=== PATIENT | male | born 1960 | race African-American/Black ===

== ENCOUNTER 2017-01-17 11:32 | Emergency (ER) | payer MEDICARE, MEDICAID ==
[~2017-01-17] VITALS: Ht 188 cm; Wt 67.0 kg
[~2017-01-17 11:32] MED LIST: CHLO50TA6 PO; DIVA250T8 OR
[2017-01-17 11:34] VITALS: BP 107/78; PULSE 85; RESP 16; TEMP 98.2; O2SAT 97
--- NOTE | 2017-01-17 11:39 | PD ---
Physical Exam Time Seen by Provider: 11:37 Narrative 66 y/o male presents for evaluation of weight loss, blurred vision, diarrhea, generalized feelings of unwell. Difficult historian. VSS Seen at triage desk. Awaiting bed placement. Data Data Last Documented VS Vital Signs Date Time Temp Pulse Resp B/P Pulse Ox O2 Delivery O2 Flow Rate FiO2 01/17/17 11:34 98.2 85 16 107/78 97 MDM Medical Record Reviewed: Yes Supervised Visit with [place]: Gómez Pimentel January 17, 2017 11:39
[2017-01-17 12:35] LABS: AUTOMATED NEUTROPHIL # 3.8 TH/MM3 (1.8-7.7); BASOPHIL % 0.3 % (0.0-2.0); BLOOD, URINE NEG (NEG); COMMENT (UR) CULT NOT INDICATED; CULTURE IF INDICATED CULT NOT INDICATED; EOSINOPHIL # 0.1 TH/MM3 (0-0.4); EOSINOPHIL % 2.4 % (0.0-4.0); GLUCOSE,URINE NEG (NEG); HEMATOCRIT 36.9 % (39.0-51.0); HEMO FLAGS DIFF FINAL; HYALINE CAST, URINE 4 /lpf (RARE); KETONE, URINE NEG (NEG); LYMPHOCYTE # 1.1 TH/MM3 (1.0-4.8); MEAN CORPUSCULAR HEMOGLOBIN 28.4 PG (27.0-34.0); MEAN CORPUSCULAR HGB CONC 32.3 % (32.0-36.0); MONO % 8.7 % (0.0-8.0); MUCUS URINE FEW /lpf (OCC); NEUT % 68.6 % (16.0-70.0); NITRITE,URINE NEG (NEG); PH, URINE 7.5 (5.0-8.5); PLATELET COUNT 209 TH/MM3 (150-450); RED BLOOD COUNT 4.19 MIL/MM3 (4.50-5.90); RED CELL DISTRIBUTION WIDTH 13.8 % (11.6-17.2); SQUAMOUS EPITHELIAL CELL URINE <1 /hpf (0-5); URINE COLOR LIGHT-YELLOW (YELLW/STRAW); WHITE BLOOD COUNT 5.6 TH/MM3 (4.0-11.0)
[2017-01-17 12:37] LABS: AMPHETAMINE, URINE NEG (NEG); BARBITURATES, URINE NEG (NEG); COCAINE, URINE NEG (NEG)
--- NOTE | 2017-01-17 12:47 | RADRPT ---
EXAM DATE/TIME: 01/17/2017 12:29 [place] COMPARISON: No previous studies available for comparison. INDICATIONS : Altered mental status, blurred vision, general illness RADIATION DOSE: 50.38 CTDIvol (mGy) MEDICAL HISTORY : None SURGICAL HISTORY : None. ENCOUNTER: Initial ACUITY: 1 day PAIN SCALE: 2/10 LOCATION: cranial TECHNIQUE: Multiple contiguous axial images were obtained of the head. Using automated exposure control and adj ustment of the mA and/or kV according to patient size, radiation dose was kept as low as reasonably a chievable to obtain optimal diagnostic quality images. FINDINGS: CEREBRUM: The ventricles are normal for age. No evidence of midline shift, mass lesion, hemorrhage or acute in farction. No extra-axial fluid collections are seen. POSTERIOR FOSSA: The cerebellum and brainstem are intact. The 4th ventricle is midline. The cerebellopontine angle i s unremarkable. EXTRACRANIAL: The visualized portion of the orbits is intact. SKULL: The calvaria is intact. No evidence of skull fracture. CONCLUSION: No acute disease. Satya Dillard MD on January 17, 2017 at 12:45 Board Certified Radiologist. This report was verified electronically.
[2017-01-17 12:49] LABS: ALT (GPT) 20 U/L (12-78); ANION GAP 4 MEQ/L (5-15); AST (GOT) 38 U/L (15-37); BICARBONATE 33.7 MEQ/L (21.0-32.0); BLOOD UREA NITROGEN 12 MG/DL (7-18); CHLORIDE 100 MEQ/L (98-107); GLOMERULAR FILTRATION RATE 65 ML/MIN (>89); POTASSIUM 3.2 MEQ/L (3.5-5.1); SODIUM (NA) 138 MEQ/L (136-145)
[2017-01-17 12:53] LABS: ALKALINE PHOSPHATASE 59 U/L (45-117); TOTAL BILIRUBIN ADULT 0.3 MG/DL (0.2-1.0)
[2017-01-17] MEDS ORDERED: METO25TA3 PO (13:04)
[2017-01-17] MEDS ORDERED: ZANT150T2 PO (13:04)
[2017-01-17] MEDS ORDERED: HYDR25TA5 PO (13:04)
[2017-01-17] MEDS ORDERED: BACL10TA PO (13:04)
[2017-01-17] MEDS ORDERED: POTA10CA PO (13:04)
[2017-01-17] MEDS ORDERED: TYLE325T PO (13:04)
[2017-01-17] MEDS ORDERED: ALBUAER3 INH (13:04)
[2017-01-17] MEDS ORDERED: GABA100C4 PO (13:04)
[2017-01-17] MEDS ORDERED: LISI10TA3 PO (13:04)
[2017-01-17] MEDS ORDERED: IBUP400T20 PO (13:04)
[2017-01-17] MEDS ORDERED: TRIH2 PO (13:04)
[2017-01-17] MEDS ORDERED: SERO200T PO (13:04)
[2017-01-17] MEDS ORDERED: FURO1TAB60 PO (13:04)
[2017-01-17] MEDS ORDERED: REME45TA PO (13:04)
[2017-01-17] MEDS ORDERED: COLA100C3 PO (13:04)
[2017-01-17] MEDS ORDERED: LITH450T PO (13:04)
[2017-01-17] MEDS ORDERED: RISP4TAB41 PO (13:04)
[2017-01-17] MEDS ORDERED: POTASSIUM CHLORIDE 20 MEQ CONTROLLED RELEASE TAB PO ONE (13:15)
--- NOTE | 2017-01-17 14:33 | PD ---
HPI Chief Complaint: Psychiatric Symptoms Time Seen by Provider: 11:50 Travel History International Travel<30 days: No Contact w/Intl Traveler<30days: No Traveled to known affect area: No History of Present Illness HPI 56-year-old male with history of schizophrenia here with complaint of headache. Patient lives at a assisted living facility. Apparently sometime early this morning approximately 5 AM he had a mechanical fall and hit his head and states that he has had a headache since, occipital. Denies any LOC, nausea, vomiting, neck or back pain. Patient states that he has been "jumping", describes muscle spasms or flinches ever since he hit his head. States that he feels like he is "industrial engineering" in weight been normal, describing a levitation type sensation. Admits to hearing voices, been somewhat paranoid and this is worse than usual. When our nursing staff called and spoke with his ALS, they stated that he's been increasingly agitated, hearing more voices than at baseline. Compliant with medications. PFSH Past Medical History Medical History: Unable to Obtain Bipolar Disorder: Yes Past Surgical History Surgical History: Unable to Obtain Social History Alcohol Use: No Tobacco Use: No Substance Use: Yes (COCAINE DAILY) Allergies-Medications (Allergen,Severity, Reaction): Coded Allergies: Penicillin (Verified Allergy, Severe, 01/17/17) Reported Meds & Prescriptions Reported Meds & Active Scripts Active Reported Proair Hfa 8.5 GM Inh (Albuterol Sulfate) 90 Mcg/Act Aer 2 Puff INH TID PRN 108 mcg/actuation Trihexyphenidyl (Trihexyphenidyl HCl) 2 Mg Tab 2 Mg PO BID Risperdal (Risperidone) 4 Mg Tab 6 Mg PO BID Zantac (Ranitidine HCl) 150 Mg Tab 150 Mg PO BID Seroquel (Quetiapine Fumarate) 200 Mg Tab 200 Mg PO HS Potassium Chloride ER (Potassium Chloride) 10 Meq Cap 10 Meq PO DAILY Remeron (Mirtazapine) 45 Mg Tab 45 Mg PO HS Metoprolol Tartrate 25 Mg Tab 25 Mg PO BID [place] Carbonate ER ([place] Carbonate) 450 Mg Tab 450 Mg PO BID Lisinopril 10 Mg Tab 10 Mg PO DAILY Ibuprofen 400 Mg Tab 400 Mg PO TID Hydrochlorothiazide 25 Mg Tab 50 Mg PO DAILY Gabapentin 100 Mg Cap 100 Mg PO TID Lasix (Furosemide) 40 Mg Tab 40 Mg PO DAILY Colace (Docusate Sodium) 100 Mg Cap 100 Mg PO BID Baclofen 10 Mg Tab 10 Mg PO TID Tylenol (Acetaminophen) 325 Mg Tab 325 Mg PO TID Review of Systems ROS Limitations: Poor Historian Except as stated in HPI: all other systems reviewed are Neg Physical Exam Exam Limitations: Poor Historian Narrative GENERAL: male in no acute distress SKIN: Focused skin assessment warm/dry. HEAD: Atraumatic. Normocephalic. EYES: Pupils equal and round. No scleral icterus. No injection or drainage. ENT: No nasal bleeding or discharge. Mucous membranes pink and moist. NECK: Supple CARDIOVASCULAR: Regular rate and rhythm. No murmur appreciated. RESPIRATORY: No accessory muscle use. Occasional harsh cough, wheezing and rhonchi that improves with cough GASTROINTESTINAL: Abdomen soft, non-tender, nondistended. MUSCULOSKELETAL: No obvious deformities.No edema. NEUROLOGICAL: Awake and alert. No obvious cranial nerve deficits. Motor grossly within normal limits. Normal speech. PSYCHIATRIC: Tangential thought process, euthymic mood and affect. Admits to auditory hallucinations, some paranoia. Denies any suicidal, homicidal ideation. Data Data Last Documented VS Vital Signs Date Time Temp Pulse Resp B/P Pulse Ox O2 Delivery O2 Flow Rate FiO2 01/17/17 11:46 18 01/17/17 11:34 98.2 85 107/78 97 Orders Complete Blood Count With Diff (01/17/17 12:00) Comprehensive Metabolic Panel (01/17/17 12:00) Thyroid Stimulating Hormone (01/17/17 12:00) Urinalysis - C+S If Indicated (01/17/17 12:00) Psych Screen (01/17/17 12:00) Drug Screen, Random Urine (01/17/17 12:00) Ct Brain W/O Iv Contrast(Rout) (01/17/17 12:00) [place] (Li) (01/17/17 12:14) Potassium Chloride (Kcl) (01/17/17 13:15) Labs Laboratory Tests Test 01/17/17 01/17/17 12:06 12:49 White Blood Count 5.6 TH/MM3 Red Blood Count 4.19 MIL/MM3 Hemoglobin 11.9 GM/DL Hematocrit 36.9 % Mean Corpuscular Volume 88.0 FL Mean Corpuscular Hemoglobin 28.4 PG Mean Corpuscular Hemoglobin 32.3 % Concent Red Cell Distribution Width 13.8 % Platelet Count 209 TH/MM3 Mean Platelet Volume 7.3 FL Neutrophils (%) (Auto) 68.6 % Lymphocytes (%) (Auto) 20.0 % Monocytes (%) (Auto) 8.7 % Eosinophils (%) (Auto) 2.4 % Basophils (%) (Auto) 0.3 % Neutrophils # (Auto) 3.8 TH/MM3 Lymphocytes # (Auto) 1.1 TH/MM3 Monocytes # (Auto) 0.5 TH/MM3 Eosinophils # (Auto) 0.1 TH/MM3 Basophils # (Auto) 0.0 TH/MM3 CBC Comment DIFF FINAL Differential Comment Urine Color LIGHT-YELLOW Urine Turbidity CLEAR Urine pH 7.5 Urine Specific Star 1.005 Urine Protein NEG mg/dL Urine Glucose (UA) NEG mg/dL Urine Ketones NEG mg/dL Urine Occult Blood NEG Urine Nitrite NEG Urine Bilirubin NEG Urine Urobilinogen LESS THAN 2.0 MG/DL Urine Leukocyte Esterase NEG Urine RBC LESS THAN 1 /hpf Urine WBC LESS THAN 1 /hpf Urine Squamous Epithelial <1 /hpf Cells Urine Hyaline Casts 4 /lpf Urine Mucus FEW /lpf Microscopic Urinalysis Comment CULT NOT INDICATED Sodium Level 138 MEQ/L Potassium Level 3.2 MEQ/L Chloride Level 100 MEQ/L Carbon Dioxide Level 33.7 MEQ/L Anion Gap 4 MEQ/L Blood Urea Nitrogen 12 MG/DL Creatinine 1.36 MG/DL Estimat Glomerular Filtration 65 ML/MIN Rate Random Glucose 69 MG/DL Calcium Level 9.1 MG/DL Total Bilirubin 0.3 MG/DL Aspartate Amino Transf 38 U/L (AST/SGOT) Alanine Aminotransferase 20 U/L (ALT/SGPT) Alkaline Phosphatase 59 U/L Total Protein 7.7 GM/DL Albumin 3.4 GM/DL Thyroid Stimulating Hormone 0.752 uIU/ML 3rd Gen Urine Opiates Screen NEG Urine Barbiturates Screen NEG Urine Amphetamines Screen NEG Urine Benzodiazepines Screen NEG Urine Cocaine Screen NEG Urine Cannabinoids Screen NEG [place] Level 1.5 MEQ/L MDM Medical Decision Making Medical Screen Exam Complete: Yes Emergency Medical Condition: Yes Medical Record Reviewed: Yes Differential Diagnosis 56-year-old male with history of schizophrenia here with report of headache after a mechanical fall this a.m., increasing voices for unknown duration. Differential includes mechanical fall, closed head injury, skull fracture, ICH, concussion, schizophrenia, medication noncompliance, drug-induced mood disorder Narrative Course Patient placed on monitor, IV established and blood obtained. CT of the brain was obtained and negative. CBC, CMP, TSH, urinalysis, urine drug screen, lithium levels were obtained and notable for potassium 3.2, replaced with 40 mEq orally. Patient medically clear for psychiatric evaluation. Diagnosis Primary Impression: Schizophrenia Qualified Code: F20.9 - Schizophrenia, unspecified type Additional Impressions: Closed head injury Qualified Code: S09.90XA - Closed head injury, initial encounter Hypokalemia Auditory hallucinations Hollie Tong MD January 17, 2017 14:33
[2017-01-17 15:30] VITALS: BP 128/91; PULSE 77; RESP 18; O2SAT 97
[2017-01-17 22:32] VITALS: BP 162/78; PULSE 78; RESP 16; O2SAT 94
[2017-01-18 02:00] VITALS: BP 128/90; PULSE 83; RESP 18; O2SAT 90
[2017-01-18 06:23] VITALS: BP 145/97; PULSE 92; RESP 18; O2SAT 98
[2017-01-18 08:42] VITALS: BP 145/90; PULSE 92; RESP 18; TEMP 98.2; O2SAT 98
[2017-01-18 08:44] VITALS: BP 145/90; TEMP 98.2
--- NOTE | 2017-01-18 11:30 | PD.CONS ---
Provisional Diagnosis Admission Date [place] I. Chronic paranoid schizophrenia, bipolar disorder [place] II. Deferred [place] III. HTN History of Present Illness Service Psychiatry Consult Requested By HPI The patient is a 56-year-old [place] man, domiciled [place], single, unemployed, on SSI, with extensive psychiatric history of schizophrenia , bipolar disorder, numerous hospitalizations, outpatient care by visiting psychiatrist in [facility], previous suicidal attempts, self cutting behavior, he is on Risperdal 3 mg, lithium 450 mg twice a day, Seroquel 200 mg, Remeron 45 mg, who came to the ER with complaint of headache. Apparently sometime early in the morning yesterday approximately 5 AM he had a mechanical fall and hit his head and states that he has had a headache since, occipital. Head CT was performed with no acute findings. On psychiatric evaluation today patient is calm, cooperative and pleasant. He reports chronic auditory hallucinations, voices calling his name, sometimes conversing each other, but not commanding type. Patient says that he has been hearing these voices since he was child. He is not afraid or anxious about them. Patient denies depressive symptoms, he denies anxiety, he denies naomi and psychosis. He denies suicidal or homicidal ideation, he denies visual and auditory hallucinations. No agitation, no aggressive behavior, no paranoia, no delusions present. She has a very concrete and fragmented thinking, but mostly logical and coherent. Patient is oriented 3, no attention deficit, no gross cognitive impairment observed. He denies the use of drugs and alcohol, reports full compliance with his medications. No significant side effects. Review of Systems Constitutional: DENIES: Diaphoretic episodes, Fatigue, Fever, Weight gain, Weight loss, Chills, Dizziness, Change in appetite, Night Sweats Endocrine: DENIES: Heat/cold intolerance, Polydipsia, Polyuria, Polyphagia Eyes: DENIES: Blurred vision, Diplopia, Eye inflammation, Eye pain, Vision loss , Photosensitivity, Double Vision Ears, nose, mouth, throat: DENIES: Tinnitus, Hearing loss, Vertigo, Nasal discharge, Oral lesions, Throat pain, Hoarseness, Ear Pain, Running Nose, Epistaxis, Sinus Pain, Toothache, Odynophagia Respiratory: DENIES: Apneas, Cough, Snoring, Wheezing, Hemoptysis, Sputum production, Shortness of breath Cardiovascular: DENIES: Chest pain, Palpitations, Syncope, Dyspnea on Exertion , PND, Lower Extremity Edema, Orthopnea, Claudication Gastrointestinal: DENIES: Abdominal pain, Black stools, Bloody stools, Constipation, Diarrhea, Nausea, Vomiting, Difficulty Swallowing, Anorexia Genitourinary: DENIES: Sexual dysfunction, Urinary frequency, Urinary incontinence, Urgency, Hematuria, Dysuria, Nocturia, Penile Discharge, Testicular Pain, Testicular Swelling Musculoskeletal: DENIES: Joint pain, Muscle aches, Stiffness, Joint Swelling, Back pain, Neck pain Integumentary: DENIES: Abnormal pigmentation, Nail changes, Pruritus, Rash Hematologic/lymphatic: DENIES: Bruising, Lymphadenopathy Immunologic/allergic: DENIES: Eczema, Urticaria Neurologic: DENIES: Abnormal gait, Headache, Localized weakness, Paresthesias, Seizures, Speech Problems, Tremor, Poor Balance Psychiatric: DENIES: Anxiety, Confusion, Mood changes, Depression, Hallucinations, Agitation, Suicidal Ideation, Homicidal Ideation, Delusions Past Family Social History Coded Allergies: Penicillin (Verified Allergy, Severe, 01/17/17) Reported Medications Albuterol 8.5 GM Inh (Proair Hfa 8.5 GM Inh)90 Mcg/Act Aer2 Puff INH TID PRN ( SHORTNESS OF BREATH) #1 INHALER Ref 0 108 mcg/actuation 01/17/17 Trihexyphenidyl 2 Mg Tab2 Mg PO BID #60 TAB Ref 0 01/17/17 Risperidone (Risperdal)4 Mg Tab6 Mg PO BID #60 TAB Ref 0 01/17/17 Ranitidine (Zantac)150 Mg [id number] Mg PO BID #60 TAB Ref 0 01/17/17 Quetiapine (Seroquel)200 Mg [id number] Mg PO HS #30 TAB Ref 0 01/17/17 Potassium Chloride ER 10 Meq Cap10 Meq PO DAILY #30 CAP Ref 0 01/17/17 Mirtazapine (Remeron)45 Mg Tab45 Mg PO HS #30 TAB Ref 0 01/17/17 Metoprolol Tartrate 25 Mg Tab25 Mg PO BID #60 TAB Ref 0 01/17/17 [place] Carbonate ER 450 Mg [id number] Mg PO BID Ref 0 01/17/17 Lisinopril 10 Mg Tab10 Mg PO DAILY #30 TAB Ref 0 01/17/17 Ibuprofen 400 Mg [id number] Mg PO TID Ref 0 01/17/17 Hydrochlorothiazide 25 Mg Tab50 Mg PO DAILY #30 TAB Ref 0 01/17/17 Gabapentin 100 Mg [id number] Mg PO TID #90 CAP Ref 0 01/17/17 Furosemide (Lasix)40 Mg Tab40 Mg PO DAILY #30 TAB Ref 0 01/17/17 Docusate Sodium (Colace)100 Mg [id number] Mg PO BID #60 CAP Ref 0 01/17/17 Baclofen 10 Mg Tab10 Mg PO TID Ref 0 01/17/17 Acetaminophen (Tylenol)325 Mg [id number] Mg PO TID #1 TAB Ref 0 01/17/17 Family History Patient denies psychiatric family Social History Patient was born and raised in [facility], he lives in [facility], single, on SSI, highest level of education is eighth grade Physical Exam Physical exam no EPS, no tardive dyskinesia, no tremors, no stiffness, no gait abnormality, no withdrawal present Vital Signs Vital Signs Date Time Temp Pulse Resp B/P Pulse Ox O2 Delivery O2 Flow Rate FiO2 01/18/17 08:44 98.2 92 18 145/90 98 01/18/17 06:23 Room Air Lab Results [place] levels is 1.5, toxicology negative, BAL negative Head CT shows no significant acute abnormality Mental Status Examination Appearance -Americans man, oriented and his stated age, poor hygiene, Disheveled, he is calm, cooperative and pleasant Speech: Unremarkable Orientation: x3 Memory: Unremarkable Thought Process: Goal Directed, Other (concrete) Thought Content: Unremarkable Language Fluent and spontaneous Fund of Knowledge Limited Attention and Concentration: Good Attention Remarks No attention deficit Suicidal Ideation: No Previous Suicide Attempts: No Homicidal Ideation: No Previous Homicide Attempts: No Insight: Good Affect: Good Mood: Appropriate Motor Activity: Normal gait Assessment & Plan Problem List: (1) Schizophrenia Assessment & Plan: On psychiatric evaluation the patient does not present any evidence of depression, anxiety, reports chronic auditory hallucinations of voices all in him by his name and conversing with each other, but not commanding in type, which are well documented part of baseline. Patient denies suicidal or homicidal ideation. Patient does not meet criteria for second admission at this moment, he should continue his psychiatric care as an outpatient for visit his psychiatrist in his residential facility. Continue current psychotropics. ICD Code: F20.9 Assessment & Plan Estimated LOS: days Problem Qualifiers (1) Schizophrenia: Qualified Code: F20.9 - Schizophrenia, unspecified type Abraham Rolon MD January 18, 2017 11:30
== END 2017-01-18 09:58 | disposition home or self-care (01) ==
LOC: NEPD 11:32 → NEPJ 01-18 09:58
DX: S09.90XA Unspecified injury of head, initial encounter (principal); F20.9 Schizophrenia, unspecified; E87.6 Hypokalemia; R44.0 Auditory hallucinations; F14.90 Cocaine use, unspecified, uncomplicated; I10 Essential (primary) hypertension; W19.XXXA Unspecified fall, initial encounter; Y92.199 Unspecified place in other specified residential institution as the place of occurrence of the external cause; Z88.0 Allergy status to penicillin
CPT/HCPCS: 70450; 80053; 80178; 80307; 81001; 84443; 85025

== ENCOUNTER 2017-07-04 15:47 | Emergency (ER) | payer MEDICARE, MEDICAID ==
[~2017-07-04] VITALS: Ht 188 cm; Wt 80.0 kg
[~2017-07-04 15:47] MED LIST changes: +ALBUAER3 INH; +BACL10TA PO; -CHLO50TA6 PO; +COLA100C3 PO; -DIVA250T8 OR; +FURO1TAB60 PO; +GABA100C4 PO; +HYDR25TA5 PO; +IBUP400T20 PO; +LISI10TA3 PO; +LITH450T PO; +METO25TA3 PO; +POTA10CA PO; +REME45TA PO; +RISP4TAB41 PO; +SERO200T PO; +TRIH2 PO; +TYLE325T PO; +ZANT150T2 PO
[2017-07-04 15:48] VITALS: BP 176/113; PULSE 99; RESP 20; TEMP 99.2; O2SAT 96
== END 2017-07-04 20:02 | disposition left against medical advice (07) ==
LOC: NED 15:47
DX: Z03.89 Encounter for observation for other suspected diseases and conditions ruled out (principal)
CPT/HCPCS: 99281